=== PATIENT | male | born 1960 | race Caucasian/White ===

== ENCOUNTER 2019-06-24 11:26 | Inpatient (IN) | payer OTHER ==
[~2019-06-24] VITALS: Ht 170.2 cm; Wt 57.8 kg
[~2019-06-24 11:26] MED LIST: LIB5 PO; METO25XL PO; diuretic PO
[2019-06-24] MEDS ORDERED: DEXTROSE 50%-WATER 25 GM/50 ML SYRINGE IVP ONE ×2 (11:35→13:15)
[2019-06-24] MEDS ORDERED: DEXTROSE 5%-0.9% SODIUM CHL 1,000 ML IV ONE (11:35)
[2019-06-24] MEDS ORDERED: SODIUM CHLORIDE 0.9% 2,100 ML IV ONE (11:37)
[2019-06-24] MEDS ORDERED: SODIUM CHLORIDE 154 MEQ in DEXTROSE 10%-WATER 1,000 ML IV ONE (11:45)
[2019-06-24] MEDS ORDERED: SPIR50 PO (11:49)
[2019-06-24] MEDS ORDERED: LACT30L PO (11:49)
[2019-06-24] MEDS ORDERED: METO1TAB14 PO (11:49)
[2019-06-24] MEDS ORDERED: FURO40 PO (11:49)
[2019-06-24] MEDS ORDERED: KDUR20 PO (11:49)
[2019-06-24] MEDS ORDERED: EPINEPHrine 1:10,000 [1 MG/10 ML] SYRINGE ONE (12:07)
[2019-06-24] MEDS ORDERED: ATROPINE SULFATE 0.1 MG/ML 10 ML SYRINGE IVP ONE ×2 (12:07→16:26)
[2019-06-24] MEDS ORDERED: EPINEPHrine 1:10,000 [1 MG/10 ML] SYRINGE IVP ONE ×2 (12:10→12:35)
[2019-06-24] MEDS: NOREPINEPHRINE 4 MG/D5%-WATER 250 ML IV PRN ×4 (12:17→22:49)
[2019-06-24 12:19] LABS: MEAN CORPUSCULAR HEMOGLOBIN 28.1 pg (26.0-34.0); MEAN CORPUSCULAR HGB CONC 30.3 G/dL (31.0-37.0); MEAN CORPUSCULAR VOLUME 93 fL (80-100); PLATELET COUNT (AUTO) 185 K/uL (150-450); RED BLOOD CELL COUNT(AUTO) 2.37 MIL/uL (4.50-5.90); RED CELL DISTRIBUTION WIDTH 19.5 % (11.5-14.5)
[2019-06-24] MEDS ORDERED: RAPID SEQUENCE KIT [RSI] 1 EACH KIT ONE (12:21)
[2019-06-24] MEDS ORDERED: SUCCINYLCHOLINE CHLORIDE 20 MG/ML 10 ML VIAL ONE (12:22)
[2019-06-24] MEDS ORDERED: LEVOFLOXACIN 750 MG/D5% WATER 150 ML IV ONE (12:30)
[2019-06-24] MEDS ORDERED: SODIUM CHLORIDE 0.9% 1,000 ML IV ONE ×3 (12:30→15:00)
[2019-06-24] MEDS ORDERED: PIPERACILLIN SODIUM/TAZOBACTAM 4.5 GM in DEXTROSE 5%-WATER 100 ML IV ONE (12:30)
[2019-06-24 12:32] LABS: HEMOGLOBIN 6.7 g/dL (13.5-17.5)
[2019-06-24 12:38] LABS: APPEARANCE,URINE CLOUDY (CLEAR); GLUCOSE, URINE (UA) NEGATIVE (NEGATIVE); KETONES,URINE TRACE mg/dL (NEGATIVE); LEUKOCYTE ESTERASE ,URINE NEGATIVE (NEGATIVE); NITRATE,URINE NEGATIVE (NEGATIVE); OCCULT BLOOD,URINE NEGATIVE (NEGATIVE); PROTEIN,URINE TRACE (NEGATIVE); UROBILINOGEN,URINE 0.2 mg/dL (<=1.0)
[2019-06-24 12:38] LABS: INR 2.3 (0.9-1.1); PROTHROMBIN TIME 23.6 SEC (9.4-11.6)
[2019-06-24] MEDS ORDERED: ETOMIDATE 2 MG/ML 10 ML VIAL IVP ONE (12:40)
[2019-06-24] MEDS ORDERED: ROCURONIUM BROMIDE 10 MG/ML 5 ML VIAL IVP ONE (12:40)
[2019-06-24 12:47] LABS: BILIRUBIN,URINE PRELIM. POSITIVE (NEGATIVE)
[2019-06-24] MEDS ORDERED: PROPOFOL 1000 MG/ISO-OSM 100 ML IV ONE (12:49)
[2019-06-24 12:54] LABS: BAND NEUTROPHILS % (MANUAL) 10 % (0-5); LYMPHOCYTES % (MANUAL) 3 % (22-44); MONOCYTES % (MANUAL) 1 % (2-9); SEGMENTED NEUTROPHILS % 86 % (40-70)
[2019-06-24] MEDS ORDERED: VANCOMYCIN HCL 1 GM/D5% WATER 200 ML IV ONE (13:00)
[2019-06-24] MEDS ORDERED: SODIUM BICARBONATE [ADULT] 8.4% 50 MEQ/50 ML SYRINGE IVP ONE ×4 (13:00→17:33)
[2019-06-24] MEDS ORDERED: CALCIUM CHLORIDE 100 MG/ML 10 ML SYRINGE IVP ONE ×2 (13:00→17:33)
[2019-06-24 13:01] LABS: AMORPHOUS SEDIMENT,UR Moderate /LPF (None Seen); BACTERIA,URINE None Seen /HPF (None Seen); RBC,URINE None Seen /HPF (0-2); SQUAMOUS EPITHELIAL CELL,UR Few /LPF (None Seen); WBC,URINE None Seen /HPF (0-5)
[2019-06-24 13:01] LABS: ALANINE AMINOTRANSFERASE 29 U/L (12-78); ALBUMIN 1.3 g/dL (3.4-5.0); ALKALINE PHOSPHATASE 126 U/L (46-116); ANION GAP 16 mmol/L (8-16); ASPARTATE AMINOTRANSFERASE 68 U/L (15-37); BILIRUBIN,TOTAL 2.1 mg/dL (0.1-1.0); CALCIUM, TOTAL 9.4 mg/dL (8.8-10.5); CARBON DIOXIDE 10 mmol/L (22-29); CHLORIDE 92 mmol/L (98-107); CREATINE KINASE, TOTAL ONLY 67 U/L (39-308); CREATININE 2.58 mg/dL (0.60-1.30); GLOMERULAR FILTR. RATE CALC 26 mL/min (>60); GLUCOSE,RANDOM 308 mg/dL (70-110); PHOSPHORUS 7.6 mg/dL (2.5-4.9); TOTAL PROTEIN, SERUM 4.6 g/dL (6.4-8.2); UREA NITROGEN, BLOOD 68 mg/dL (7-18)
[2019-06-24 13:06] LABS: B-TYPE NATRIURETIC PEPTIDE 223 pg/mL (0-100)
[2019-06-24 13:11] LABS: POTASSIUM 7.7 mmol/L (3.5-5.1); SODIUM SERUM 118 mmol/L (136-145)
[2019-06-24 13:12] LABS: ABG A-A DIFF O2 302.9 mmHg (10-20.0); ABG BASE EXCESS -21.6 mmol/L (-2.0-3.0); ABG CARBOXYHEMOGLOBIN 0.7 % (0.0-1.5); ABG METHEMOGLOBIN 0.3 % (0.0-1.5); ABG OXYGEN CONTENT 12.3 mL/dL (15.0-23.0); ABG PCO2 41 mmHg (35-45); ABG PH 6.997 (7.35-7.450); SOURCE, BLOOD GAS ARTERIAL; TEMPERATURE, FAHRENHEIT, BG 86.3 FAHREN (96.0-98.6)
[2019-06-24 13:13] LABS: ABG HCO3 8.9 mmol/L (22.0-26.0); O2 DEVICE,BLOOD GAS VENTILATOR (ROOM AIR); PEEP,BG 5 cm H2O; SITE, BLOOD GAS LFT RADIAL; VT, ABG 400 ml
[2019-06-24] MEDS ORDERED: INSULIN REGULAR, HUMAN 100 UNITS/ML IVP ONE (13:15)
[2019-06-24] MEDS ORDERED: PROPOFOL 1000 MG/ISO-OSM 100 ML IV PRN (13:15)
[2019-06-24 13:20] LABS: LACTIC ACID 11.9 mmol/L (0.4-2.0)
[2019-06-24] MEDS ORDERED: ALBUTEROL SULFATE 2.5 MG/0.5 ML NEB SOLUTION NEB ONE (13:30)
[2019-06-24 13:41] LABS: GLUCOSE,POINT OF CARE 236 MG/DL (70-110)
[2019-06-24 14:01] LABS: GLUCOSE,POINT OF CARE 223 MG/DL (70-110)
[2019-06-24] MEDS ORDERED: PHENYLEPHRINE 200 MG/D5%-WATER 250 ML IV PRN (14:15)
[2019-06-24] MEDS ORDERED: ACETAMINOPHEN 325 MG TABLET PO PRN ×2 (14:15→15:00)
[2019-06-24] MEDS ORDERED: ONDANSETRON HCL 4 MG/2 ML VIAL IVP PRN ×2 (14:15→15:00)
[2019-06-24 14:31] LABS: GLUCOSE,POINT OF CARE 345 MG/DL (70-110)
[2019-06-24] MEDS ORDERED: SODIUM CHLORIDE 0.9% 500 ML IV ONE (14:42)
[2019-06-24] MEDS ORDERED: SODIUM CITRATE 4% CATH FLUSH 5 ML SYRINGE IVP PRN ×2 (14:45)
[2019-06-24] MEDS ORDERED: HYDROCODONE/ACETAMINOPHEN 5-325 MG TABLET PO PRN (15:00)
[2019-06-24] MEDS ORDERED: ZOLPIDEM TARTRATE 5 MG TABLET PO PRN (15:00)
[2019-06-24] MEDS ORDERED: BISACODYL 10 MG RECTAL RECTAL SUPPOSITORY PR PRN (15:00)
[2019-06-24] MEDS ORDERED: MAGNESIUM HYDROXIDE SUSPENSION 30 ML UDCUP PO PRN (15:00)
[2019-06-24] MEDS ORDERED: VANCOMYCIN HCL 1 GM/D5% WATER 200 ML IV PRN (15:30)
[2019-06-24 15:45] LABS: CALCIUM, TOTAL 9.3 mg/dL (8.8-10.5); CREATININE 2.41 mg/dL (0.60-1.30); POTASSIUM 5.8 mmol/L (3.5-5.1)
[2019-06-24] MEDS ORDERED: CALCIUM GLUCONATE 1,000 MG in DEXTROSE 5%-WATER 50 ML IV ONE (15:45)
[2019-06-24] MEDS: HEPARIN SODIUM,PORCINE 5,000 UNITS/ML VIAL SQ SCH ×2 (16:00→23:22)
[2019-06-24] MEDS ORDERED: ETOMIDATE 2 MG/ML 10 ML VIAL IV ONE (16:26)
[2019-06-24] MEDS: ALBUMIN HUMAN 25%-50GM/200ML 200 ML IV SCH ×2 (16:26→21:34)
[2019-06-24] MEDS ORDERED: SODIUM CHLORIDE 0.9% 250 ML IV ONE (17:29)
[2019-06-24 17:45] VITALS: BP 67/18
[2019-06-24] MEDS: VASOPRESSIN 40 UNITS in DEXTROSE 5%-WATER 98 ML IV PRN (17:55)
[2019-06-24 18:00] VITALS: BP_SYST 101; BP_SYST 84; BP_DIAS 24; BP_DIAS 31
[2019-06-24 18:15] VITALS: BP 120/30
[2019-06-24 18:31] LABS: CREATININE 2.26 mg/dL (0.60-1.30); POTASSIUM 5.5 mmol/L (3.5-5.1)
[2019-06-24 18:45] VITALS: BP 142/41
[2019-06-24 19:15] VITALS: BP 141/40
[2019-06-24 20:00] VITALS: BP 133/37
[2019-06-24] MEDS: DOCUSATE SODIUM 100 MG CAPSULE PO SCH (20:26)
[2019-06-24] MEDS ORDERED: HEPARIN SODIUM,PORCINE 1,000 UNITS/ML VIAL ONE (20:35)
[2019-06-24 21:06] LABS: ABG A-A DIFF O2 300.7 mmHg (10-20.0); ABG BASE EXCESS -12.2 mmol/L (-2.0-3.0); ABG CARBOXYHEMOGLOBIN 0.6 % (0.0-1.5); ABG HCO3 15.1 mmol/L (22.0-26.0); ABG METHEMOGLOBIN 0.3 % (0.0-1.5); ABG OXYGEN CONTENT 12.1 mL/dL (15.0-23.0); ABG OXYGEN SATURATION 97.2 % (95.0-98.0); ABG OXYHEMOGLOBIN 96.3 % (94.0-100.0); ABG PCO2 45 mmHg (35-45); ABG TOTAL HEMOGLOBIN 8.8 G/dL (12.0-18.0); PO2, ARTERIAL BG 84.4 mmHg (84.0-92.0); SOURCE, BLOOD GAS ARTERIAL
[2019-06-24 21:07] LABS: ABG PH 7.174 (7.35-7.450); SITE, BLOOD GAS ARTERIAL LINE
[2019-06-24 21:08] LABS: O2 DEVICE,BLOOD GAS VENTILATOR (ROOM AIR); PEEP,BG 5 cm H2O; VT, ABG 500 ml
[2019-06-24 21:14] LABS: HEMATOCRIT 24.4 % (41-53); HEMOGLOBIN 7.7 g/dL (13.5-17.5); MEAN CORPUSCULAR HEMOGLOBIN 28.4 pg (26.0-34.0); MEAN CORPUSCULAR HGB CONC 31.7 G/dL (31.0-37.0); MEAN CORPUSCULAR VOLUME 90 fL (80-100); RED BLOOD CELL COUNT(AUTO) 2.72 MIL/uL (4.50-5.90); RED CELL DISTRIBUTION WIDTH 18.3 % (11.5-14.5)
[2019-06-24] MEDS: OCTREOTIDE ACETATE 500 MCG in DEXTROSE 5%-WATER 97.5 ML IV SCH (21:32)
[2019-06-24] MEDS: PIPERACILLIN SODIUM/TAZOBACTAM 4.5 GM in DEXTROSE 5%-WATER 100 ML IV SCH (21:34)
[2019-06-24 21:48] LABS: PLATELET COUNT (AUTO) 71 K/uL (150-450)
[2019-06-24 21:49] LABS: BAND NEUTROPHILS % (MANUAL) 44 % (0-5); LYMPHOCYTES % (MANUAL) 3 % (22-44); MONOCYTES % (MANUAL) 2 % (2-9); SEGMENTED NEUTROPHILS % 51 % (40-70)
[2019-06-24] MEDS ORDERED: HEPARIN SODIUM,PORCINE 1,000 UNITS/ML VIAL IVP PRN ×2 (22:45)
[2019-06-24] MEDS: PROPOFOL 1000 MG/ISO-OSM 100 ML IV PRN (23:43)
[2019-06-25] VITALS (33 sets, daily range): BP systolic 27–129; BP diastolic 22–35
[2019-06-25 00:06] LABS: CALCIUM, TOTAL 8.7 mg/dL (8.8-10.5); CREATININE 2.05 mg/dL (0.60-1.30)
[2019-06-25] MEDS: PHENYLEPHRINE 200 MG/D5%-WATER 250 ML IV PRN ×3 (00:28→17:09)
[2019-06-25 01:31] LABS: GLUCOSE,POINT OF CARE 134 MG/DL (70-110)
[2019-06-25] MEDS ORDERED: 0.9% SODIUM CHLORIDE 15 ML NEB SOLUTION NEB ONE ×2 (01:33→14:22)
[2019-06-25] MEDS: NOREPINEPHRINE 4 MG/D5%-WATER 250 ML IV PRN ×5 (02:17→16:05)
[2019-06-25] MEDS ORDERED: INFLUENZA VIRUS VACCINE QVS 2019-20 (3YR+)/PF 60 MCG/0.5 ML SYRINGE IM ONE (03:15)
[2019-06-25] MEDS ORDERED: PNEUMOCOCCAL VACCINE POLYVALENT 0.5 ML VIAL [PPSV23] IM ONE (03:15)
[2019-06-25] MEDS: ALBUMIN HUMAN 25%-50GM/200ML 200 ML IV SCH ×4 (03:18→21:31)
[2019-06-25] MEDS: POTASSIUM CHLORIDE 15 MEQ in NXSTAGE RFP-402 K0/CA3 5,000 ML IRRIG PRN ×5 (04:37→23:40)
[2019-06-25] MEDS: OCTREOTIDE ACETATE 500 MCG in DEXTROSE 5%-WATER 97.5 ML IV SCH ×2 (04:45→17:08)
[2019-06-25] MEDS: PIPERACILLIN SODIUM/TAZOBACTAM 4.5 GM in DEXTROSE 5%-WATER 100 ML IV SCH ×3 (05:09→21:36)
[2019-06-25 05:11] LABS: APPEARANCE,URINE CLOUDY (CLEAR); BILIRUBIN,URINE NEGATIVE (NEGATIVE); GLUCOSE, URINE (UA) 250 mg/dL (NEGATIVE); KETONES,URINE NEGATIVE (NEGATIVE); LEUKOCYTE ESTERASE ,URINE NEGATIVE (NEGATIVE); NITRATE,URINE NEGATIVE (NEGATIVE); OCCULT BLOOD,URINE LARGE (NEGATIVE); PROTEIN,URINE SEE CONFIRM (NEGATIVE); UROBILINOGEN,URINE 0.2 mg/dL (<=1.0)
[2019-06-25 05:15] LABS: MEAN CORPUSCULAR HEMOGLOBIN 28.4 pg (26.0-34.0); MEAN CORPUSCULAR HGB CONC 32.5 G/dL (31.0-37.0); MEAN CORPUSCULAR VOLUME 87 fL (80-100); PLATELET COUNT (AUTO) 56 K/uL (150-450); RED BLOOD CELL COUNT(AUTO) 2.21 MIL/uL (4.50-5.90); RED CELL DISTRIBUTION WIDTH 18.6 % (11.5-14.5)
[2019-06-25 05:19] LABS: BACTERIA,URINE Moderate /HPF (None Seen); RBC,URINE >100 /HPF (0-2); SQUAMOUS EPITHELIAL CELL,UR Rare /LPF (None Seen); SULFOSALICYLIC ACID,URINE 1+ (Negative); WBC,URINE 26-50 /HPF (0-5)
[2019-06-25 05:20] LABS: HYALINE CASTS, URINE 0-2 /LPF (None Seen)
[2019-06-25] MEDS ORDERED: DEXTROSE 50%-WATER 25 GM/50 ML SYRINGE IVP ONE (05:23)
[2019-06-25] MEDS: VASOPRESSIN 40 UNITS in DEXTROSE 5%-WATER 98 ML IV PRN ×2 (05:31→22:14)
[2019-06-25] MEDS: DEXTROSE 50%-WATER 25 GM/50 ML SYRINGE IVP PRN ×6 (05:33→20:08)
[2019-06-25 05:34] LABS: ALBUMIN 3.6 g/dL (3.4-5.0); BILIRUBIN,TOTAL 3.2 mg/dL (0.1-1.0); CALCIUM, TOTAL 9.1 mg/dL (8.8-10.5); CREATININE 1.94 mg/dL (0.60-1.30); MAGNESIUM 1.5 mg/dL (1.80-2.40); PHOSPHORUS 3.9 mg/dL (2.5-4.9); POTASSIUM 5.4 mmol/L (3.5-5.1); THYROID STIMULATING HORMONE 0.66 uIU/mL (0.36-3.74); TOTAL PROTEIN, SERUM 5.9 g/dL (6.4-8.2); VANCOMYCIN,RANDOM 14.5 mcg/mL (25.0-50.0)
[2019-06-25 05:43] LABS: HEMATOCRIT 19.4 % (41-53); HEMOGLOBIN 6.3 g/dL (13.5-17.5)
[2019-06-25] MEDS ORDERED: SODIUM CHLORIDE 0.9% 250 ML IV ONE ×3 (05:44→22:32)
[2019-06-25 05:48] LABS: BAND NEUTROPHILS % (MANUAL) 38 % (0-5); EOSINOPHILS % (MANUAL) 1 % (1-6); LYMPHOCYTES % (MANUAL) 4 % (22-44); MONOCYTES % (MANUAL) 2 % (2-9); MYELOCYTES % 1 % (0-0); SEGMENTED NEUTROPHILS % 54 % (40-70)
[2019-06-25 07:11] LABS: GLUCOSE,POINT OF CARE 28 MG/DL (70-110)
[2019-06-25 07:11] LABS: GLUCOSE,POINT OF CARE 139 MG/DL (70-110)
[2019-06-25] MEDS: DOCUSATE SODIUM 100 MG CAPSULE PO SCH ×2 (08:01→20:14)
[2019-06-25] MEDS ORDERED: PANTOPRAZOLE SODIUM 40 MG DR TABLET PO SCH (09:00)
[2019-06-25] MEDS ORDERED: VANCOMYCIN HCL 1 GM/D5% WATER 200 ML IV ONE (09:00)
[2019-06-25] MEDS ORDERED: SODIUM CHLORIDE 154 MEQ in DEXTROSE 10%-WATER 1,000 ML IV SCH (09:45)
[2019-06-25 09:52] LABS: CALCIUM, TOTAL 8.6 mg/dL (8.8-10.5); CREATININE 1.85 mg/dL (0.60-1.30); POTASSIUM 5.4 mmol/L (3.5-5.1)
[2019-06-25] MEDS ORDERED: DEXTROSE 50%-WATER 25 GM/50 ML SYRINGE IVP PRN (11:00)
[2019-06-25] MEDS ORDERED: INSULIN LISPRO 100 UNITS/ML SQ PRN (11:00)
[2019-06-25 11:39] LABS: ABG A-A DIFF O2 618.3 mmHg (10-20.0); ABG BASE EXCESS -6.2 mmol/L (-2.0-3.0); ABG HCO3 19.5 mmol/L (22.0-26.0); ABG METHEMOGLOBIN 0.3 % (0.0-1.5); ABG OXYGEN CONTENT 10.3 mL/dL (15.0-23.0); ABG OXYGEN SATURATION 89.7 % (95.0-98.0); ABG OXYHEMOGLOBIN 88.5 % (94.0-100.0); ABG PCO2 44 mmHg (35-45); ABG PH 7.282 (7.35-7.450); ABG TOTAL HEMOGLOBIN 8.2 G/dL (12.0-18.0); PO2, ARTERIAL BG 53.4 mmHg (84.0-92.0); SOURCE, BLOOD GAS ARTERIAL; TEMPERATURE, FAHRENHEIT, BG 96.5 FAHREN (96.0-98.6)
[2019-06-25 11:40] LABS: O2 DEVICE,BLOOD GAS VENTILATOR (ROOM AIR); PEEP,BG 5 cm H2O; SITE, BLOOD GAS ARTERIAL LINE; VT, ABG 400 ml
[2019-06-25 11:56] LABS: GLUCOSE,POINT OF CARE 39 MG/DL (70-110)
[2019-06-25 11:56] LABS: GLUCOSE,POINT OF CARE 124 MG/DL (70-110)
[2019-06-25 13:16] LABS: GLUCOSE,POINT OF CARE 148 MG/DL (70-110)
[2019-06-25 13:29] LABS: HEMATOCRIT 23.6 % (41-53); HEMOGLOBIN 7.8 g/dL (13.5-17.5); MEAN CORPUSCULAR HGB CONC 33.2 G/dL (31.0-37.0); MEAN CORPUSCULAR VOLUME 88 fL (80-100); PLATELET COUNT (AUTO) 40 K/uL (150-450); RED CELL DISTRIBUTION WIDTH 17.2 % (11.5-14.5)
[2019-06-25 13:39] LABS: CALCIUM, TOTAL 8.1 mg/dL (8.8-10.5); CREATININE 1.79 mg/dL (0.60-1.30); POTASSIUM 5.1 mmol/L (3.5-5.1)
[2019-06-25 14:13] LABS: BAND NEUTROPHILS % (MANUAL) 37 % (0-5); EOSINOPHILS % (MANUAL) 1 % (1-6); LYMPHOCYTES % (MANUAL) 3 % (22-44); METAMYELOCYTES % 2 % (0-0); MONOCYTES % (MANUAL) 4 % (2-9); MYELOCYTES % 1 % (0-0); SEGMENTED NEUTROPHILS % 52 % (40-70)
[2019-06-25 15:43] LABS: ABG A-A DIFF O2 623.7 mmHg (10-20.0); ABG BASE EXCESS -5.1 mmol/L (-2.0-3.0); ABG CARBOXYHEMOGLOBIN 0.6 % (0.0-1.5); ABG HCO3 20.3 mmol/L (22.0-26.0); ABG METHEMOGLOBIN 0.3 % (0.0-1.5); ABG OXYGEN CONTENT 10.1 mL/dL (15.0-23.0); ABG OXYGEN SATURATION 84.2 % (95.0-98.0); ABG OXYHEMOGLOBIN 83.4 % (94.0-100.0); ABG PCO2 42 mmHg (35-45); ABG PH 7.321 (7.35-7.450); ABG TOTAL HEMOGLOBIN 8.6 G/dL (12.0-18.0); PO2, ARTERIAL BG 48.7 mmHg (84.0-92.0); SOURCE, BLOOD GAS ARTERIAL; TEMPERATURE, FAHRENHEIT, BG 97.9 FAHREN (96.0-98.6)
[2019-06-25 15:44] LABS: O2 DEVICE,BLOOD GAS VENTILATOR (ROOM AIR); PEEP,BG 10 cm H2O; SITE, BLOOD GAS ARTERIAL LINE; VT, ABG 400 ml
[2019-06-25] MEDS ORDERED: SODIUM CHLORIDE 0.9% 500 ML IV ONE ×2 (15:54→22:32)
[2019-06-25] MEDS: SODIUM CHLORIDE IV SCH (17:09)
[2019-06-25] MEDS: WATER IV SCH (17:09)
[2019-06-25] MEDS: DEXTROSE 20% IV SCH (17:09)
[2019-06-25 17:24] LABS: CALCIUM, TOTAL 8.2 mg/dL (8.8-10.5); CREATININE 1.89 mg/dL (0.60-1.30); POTASSIUM 5.2 mmol/L (3.5-5.1)
[2019-06-25 17:36] LABS: GLUCOSE,POINT OF CARE 54 MG/DL (70-110)
[2019-06-25 17:37] LABS: GLUCOSE,POINT OF CARE 90 MG/DL (70-110)
[2019-06-25] MEDS: PHENYLEPHRINE HCL 400 MG in DEXTROSE 5%-WATER 210 ML IV PRN (19:21)
[2019-06-25] MEDS: NOREPINEPHRINE BITARTRATE 16 MG in DEXTROSE 5%-WATER 234 ML IV PRN (19:22)
[2019-06-25 21:36] LABS: CALCIUM, TOTAL 8.5 mg/dL (8.8-10.5); CREATININE 1.91 mg/dL (0.60-1.30); POTASSIUM 4.8 mmol/L (3.5-5.1)
[2019-06-25 21:53] LABS: LACTIC ACID 4.5 mmol/L (0.4-2.0)
[2019-06-25 23:57] LABS: GLUCOSE,POINT OF CARE 91 MG/DL (70-110)
[2019-06-25 23:57] LABS: GLUCOSE,POINT OF CARE 64 MG/DL (70-110)
[2019-06-25 23:57] LABS: GLUCOSE,POINT OF CARE 77 MG/DL (70-110)
[2019-06-25 23:57] LABS: GLUCOSE,POINT OF CARE 75 MG/DL (70-110)
[2019-06-26] VITALS (8 sets, daily range): BP systolic 91–102; BP diastolic 31–38
[2019-06-26] MEDS: OCTREOTIDE ACETATE 500 MCG in DEXTROSE 5%-WATER 97.5 ML IV SCH ×3 (01:07→21:23)
[2019-06-26 01:30] LABS: CALCIUM, TOTAL 8.1 mg/dL (8.8-10.5); CREATININE 1.95 mg/dL (0.60-1.30); POTASSIUM 5.3 mmol/L (3.5-5.1)
[2019-06-26 01:41] LABS: LACTIC ACID 4.2 mmol/L (0.4-2.0)
[2019-06-26] MEDS: ALBUMIN HUMAN 25%-50GM/200ML 200 ML IV SCH ×4 (03:12→22:14)
[2019-06-26] MEDS: NOREPINEPHRINE BITARTRATE 16 MG in DEXTROSE 5%-WATER 234 ML IV PRN ×2 (04:51→18:15)
[2019-06-26] MEDS: PIPERACILLIN SODIUM/TAZOBACTAM 4.5 GM in DEXTROSE 5%-WATER 100 ML IV SCH ×3 (05:32→22:19)
[2019-06-26 05:36] LABS: HEMATOCRIT 21.7 % (41-53); HEMOGLOBIN 7.2 g/dL (13.5-17.5); MEAN CORPUSCULAR HEMOGLOBIN 29.4 pg (26.0-34.0); MEAN CORPUSCULAR HGB CONC 33.3 G/dL (31.0-37.0); MEAN CORPUSCULAR VOLUME 88 fL (80-100); PLATELET COUNT (AUTO) 29 K/uL (150-450); RED BLOOD CELL COUNT(AUTO) 2.47 MIL/uL (4.50-5.90); RED CELL DISTRIBUTION WIDTH 17.6 % (11.5-14.5)
[2019-06-26 05:48] LABS: CALCIUM, TOTAL 8.8 mg/dL (8.8-10.5); CREATININE 1.98 mg/dL (0.60-1.30); POTASSIUM 5.2 mmol/L (3.5-5.1)
[2019-06-26 05:57] LABS: GLUCOSE,POINT OF CARE 78 MG/DL (70-110)
[2019-06-26 05:57] LABS: GLUCOSE,POINT OF CARE 71 MG/DL (70-110)
[2019-06-26 05:57] LABS: GLUCOSE,POINT OF CARE 77 MG/DL (70-110)
[2019-06-26 06:57] LABS: BAND NEUTROPHILS % (MANUAL) 41 % (0-5); LYMPHOCYTES % (MANUAL) 2 % (22-44); METAMYELOCYTES % 2 % (0-0); MONOCYTES % (MANUAL) 2 % (2-9); MYELOCYTES % 3 % (0-0); REACTIVE LYMPHOCYTES 4 % (0-0); SEGMENTED NEUTROPHILS % 46 % (40-70)
[2019-06-26 06:58] LABS: WBC MORPHOLOGY TOXIC GRANULATION
[2019-06-26 07:00] LABS: GLUCOSE,POINT OF CARE 49 MG/DL (70-110)
[2019-06-26 07:01] LABS: GLUCOSE,POINT OF CARE 54 MG/DL (70-110)
[2019-06-26 07:01] LABS: GLUCOSE,POINT OF CARE 88 MG/DL (70-110)
[2019-06-26 07:01] LABS: GLUCOSE,POINT OF CARE 125 MG/DL (70-110)
[2019-06-26] MEDS: PANTOPRAZOLE SODIUM 40 MG/VIAL IVP SCH (08:17)
[2019-06-26] MEDS: DOCUSATE SODIUM 100 MG CAPSULE PO SCH ×2 (08:18→20:06)
[2019-06-26 09:14] LABS: ABG A-A DIFF O2 627.5 mmHg (10-20.0); ABG BASE EXCESS -8.6 mmol/L (-2.0-3.0); ABG CARBOXYHEMOGLOBIN 0.9 % (0.0-1.5); ABG HCO3 17.7 mmol/L (22.0-26.0); ABG METHEMOGLOBIN 0.3 % (0.0-1.5); ABG OXYGEN CONTENT 8.8 mL/dL (15.0-23.0); ABG PCO2 41 mmHg (35-45); ABG PH 7.272 (7.35-7.450); PO2, ARTERIAL BG 45.5 mmHg (84.0-92.0); SOURCE, BLOOD GAS ARTERIAL; TEMPERATURE, FAHRENHEIT, BG 98.2 FAHREN (96.0-98.6)
[2019-06-26] MEDS ORDERED: VANCOMYCIN HCL 500 MG in DEXTROSE 5%-WATER 100 ML IV ONE (09:15)
[2019-06-26 09:16] LABS: ABG OXYGEN SATURATION 78.9 % (95.0-98.0); O2 DEVICE,BLOOD GAS VENTILATOR (ROOM AIR); PEEP,BG 12 cm H2O; SITE, BLOOD GAS ARTERIAL LINE; VT, ABG 400 ml
[2019-06-26] MEDS: POTASSIUM CHLORIDE 15 MEQ in NXSTAGE RFP-402 K0/CA3 5,000 ML IRRIG PRN ×4 (09:19→20:53)
[2019-06-26] MEDS ORDERED: NOREPINEPHRINE BITARTRATE 16 MG in DEXTROSE 5%-WATER 234 ML IV PRN (09:46)
[2019-06-26 12:49] LABS: CALCIUM, TOTAL 9.3 mg/dL (8.8-10.5)
[2019-06-26 12:54] LABS: CREATININE 2.06 mg/dL (0.60-1.30)
[2019-06-26] MEDS: VASOPRESSIN 40 UNITS in DEXTROSE 5%-WATER 98 ML IV PRN (14:13)
[2019-06-26] MEDS: PHENYLEPHRINE HCL 400 MG in DEXTROSE 5%-WATER 210 ML IV PRN (14:14)
[2019-06-26] MEDS: PROPOFOL 1000 MG/ISO-OSM 100 ML IV PRN (14:55)
[2019-06-26 16:42] LABS: GLUCOSE,POINT OF CARE 91 MG/DL (70-110)
[2019-06-26 16:42] LABS: GLUCOSE,POINT OF CARE 101 MG/DL (70-110)
[2019-06-26] MEDS: SODIUM CHLORIDE IV SCH (17:40)
[2019-06-26] MEDS: DEXTROSE 20% IV SCH (17:40)
[2019-06-26] MEDS: WATER IV SCH (17:40)
[2019-06-26 17:42] LABS: CALCIUM, TOTAL 8.8 mg/dL (8.8-10.5); CREATININE 1.89 mg/dL (0.60-1.30); POTASSIUM 4.8 mmol/L (3.5-5.1)
[2019-06-26] MEDS: MORPHINE SULFATE 2 MG/ML SYRINGE IVP PRN (20:01)
[2019-06-26 20:37] LABS: CALCIUM, TOTAL 9.8 mg/dL (8.8-10.5); CREATININE 2.02 mg/dL (0.60-1.30); POTASSIUM 4.7 mmol/L (3.5-5.1)
[2019-06-26 23:46] LABS: GLUCOSE,POINT OF CARE 104 MG/DL (70-110)
[2019-06-26 23:46] LABS: GLUCOSE,POINT OF CARE 100 MG/DL (70-110)
[2019-06-26] MEDS ORDERED: SODIUM CHLORIDE 0.9% 500 ML IV ONE (23:51)
[2019-06-26] MEDS ORDERED: SODIUM CHLORIDE 0.9% 250 ML IV ONE (23:51)
[2019-06-27] VITALS (12 sets, daily range): BP systolic 80–107; BP diastolic 30–44
[2019-06-27] MEDS: MORPHINE SULFATE 2 MG/ML SYRINGE IVP PRN ×3 (00:06→22:26)
[2019-06-27 00:11] LABS: CALCIUM, TOTAL 9.8 mg/dL (8.8-10.5); CREATININE 2.02 mg/dL (0.60-1.30); POTASSIUM 4.5 mmol/L (3.5-5.1)
[2019-06-27] MEDS: PROPOFOL 1000 MG/ISO-OSM 100 ML IV PRN ×2 (02:05→13:30)
[2019-06-27] MEDS: ALBUMIN HUMAN 25%-50GM/200ML 200 ML IV SCH ×4 (03:20→21:17)
[2019-06-27 05:06] LABS: HEMATOCRIT 21.1 % (41-53); MEAN CORPUSCULAR HEMOGLOBIN 28.8 pg (26.0-34.0); MEAN CORPUSCULAR HGB CONC 32.6 G/dL (31.0-37.0); MEAN CORPUSCULAR VOLUME 88 fL (80-100); PLATELET COUNT (AUTO) 27 K/uL (150-450); RED BLOOD CELL COUNT(AUTO) 2.39 MIL/uL (4.50-5.90); RED CELL DISTRIBUTION WIDTH 18.3 % (11.5-14.5)
[2019-06-27] MEDS: PIPERACILLIN SODIUM/TAZOBACTAM 4.5 GM in DEXTROSE 5%-WATER 100 ML IV SCH ×3 (05:11→21:31)
[2019-06-27] MEDS: NOREPINEPHRINE BITARTRATE 16 MG in DEXTROSE 5%-WATER 234 ML IV PRN ×2 (05:13→20:49)
[2019-06-27 05:14] LABS: HEMOGLOBIN 6.9 g/dL (13.5-17.5)
[2019-06-27 05:16] LABS: ALBUMIN 5.2 g/dL (3.4-5.0); BILIRUBIN,TOTAL 4.7 mg/dL (0.1-1.0); CALCIUM, TOTAL 9.9 mg/dL (8.8-10.5); POTASSIUM 4.4 mmol/L (3.5-5.1); TOTAL PROTEIN, SERUM 6.8 g/dL (6.4-8.2); VANCOMYCIN,RANDOM 18.8 mcg/mL (25.0-50.0)
[2019-06-27 05:24] LABS: INR 2.8 (0.9-1.1); PROTHROMBIN TIME 28.1 SEC (9.4-11.6)
[2019-06-27 05:36] LABS: GLUCOSE,POINT OF CARE 97 MG/DL (70-110)
[2019-06-27] MEDS ORDERED: SODIUM CHLORIDE 0.9% 250 ML IV ONE (06:24)
[2019-06-27] MEDS: POTASSIUM CHLORIDE 15 MEQ in NXSTAGE RFP-402 K0/CA3 5,000 ML IRRIG PRN ×3 (06:33→17:31)
[2019-06-27] MEDS: OCTREOTIDE ACETATE 500 MCG in DEXTROSE 5%-WATER 97.5 ML IV SCH ×2 (06:41→17:25)
[2019-06-27] MEDS: VASOPRESSIN 40 UNITS in DEXTROSE 5%-WATER 98 ML IV PRN ×2 (06:43→23:57)
[2019-06-27 07:16] LABS: BAND NEUTROPHILS % (MANUAL) 39 % (0-5); LYMPHOCYTES % (MANUAL) 2 % (22-44); METAMYELOCYTES % 2 % (0-0); MONOCYTES % (MANUAL) 3 % (2-9); MYELOCYTES % 2 % (0-0); REACTIVE LYMPHOCYTES 2 % (0-0); SEGMENTED NEUTROPHILS % 50 % (40-70)
[2019-06-27 07:18] LABS: WBC MORPHOLOGY TOXIC GRANULATION
[2019-06-27] MEDS: PANTOPRAZOLE SODIUM 40 MG/VIAL IVP SCH (09:39)
[2019-06-27] MEDS: DOCUSATE SODIUM 100 MG CAPSULE PO SCH ×2 (09:39→20:07)
[2019-06-27] MEDS ORDERED: VANCOMYCIN HCL 500 MG in DEXTROSE 5%-WATER 100 ML IV ONE (10:00)
[2019-06-27 12:57] LABS: GLUCOSE,POINT OF CARE 88 MG/DL (70-110)
[2019-06-27 13:01] LABS: ABG A-A DIFF O2 550.4 mmHg (10-20.0); ABG CARBOXYHEMOGLOBIN 0.5 % (0.0-1.5); ABG HCO3 16.5 mmol/L (22.0-26.0); ABG METHEMOGLOBIN 0.3 % (0.0-1.5); ABG OXYGEN CONTENT 12.2 mL/dL (15.0-23.0); ABG OXYGEN SATURATION 96.6 % (95.0-98.0); ABG OXYHEMOGLOBIN 95.8 % (94.0-100.0); ABG PCO2 61 mmHg (35-45); ABG TOTAL HEMOGLOBIN 8.9 G/dL (12.0-18.0); PO2, ARTERIAL BG 103.7 mmHg (84.0-92.0); SOURCE, BLOOD GAS ARTERIAL
[2019-06-27 13:06] LABS: ABG PH 7.118 (7.35-7.450); O2 DEVICE,BLOOD GAS VENTILATOR (ROOM AIR); PEEP,BG 15 cm H2O; SITE, BLOOD GAS A LINE; VT, ABG 400 ml
[2019-06-27 13:07] LABS: SPONTANEOUS VT, BG 378 ml
[2019-06-27 14:26] LABS: CALCIUM, TOTAL 8.8 mg/dL (8.8-10.5); CREATININE 1.79 mg/dL (0.60-1.30); POTASSIUM 3.7 mmol/L (3.5-5.1)
[2019-06-27 14:37] LABS: ABG A-A DIFF O2 596.5 mmHg (10-20.0); ABG BASE EXCESS -8.6 mmol/L (-2.0-3.0); ABG CARBOXYHEMOGLOBIN 0.6 % (0.0-1.5); ABG HCO3 17.7 mmol/L (22.0-26.0); ABG METHEMOGLOBIN 0.3 % (0.0-1.5); ABG OXYGEN CONTENT 11.9 mL/dL (15.0-23.0); ABG OXYGEN SATURATION 94.5 % (95.0-98.0); ABG OXYHEMOGLOBIN 93.6 % (94.0-100.0); ABG PCO2 48 mmHg (35-45); ABG PH 7.221 (7.35-7.450); PO2, ARTERIAL BG 71.6 mmHg (84.0-92.0); SOURCE, BLOOD GAS ARTERIAL; TEMPERATURE, FAHRENHEIT, BG 96.8 FAHREN (96.0-98.6)
[2019-06-27 14:38] LABS: O2 DEVICE,BLOOD GAS VENT (ROOM AIR); SITE, BLOOD GAS A LINE
[2019-06-27 14:39] LABS: PEEP,BG 12 cm H2O; VT, ABG 400 ml
[2019-06-27] MEDS: PHENYLEPHRINE HCL 400 MG in DEXTROSE 5%-WATER 210 ML IV PRN (14:56)
[2019-06-27] MEDS: DEXTROSE 20% IV SCH (17:29)
[2019-06-27] MEDS: WATER IV SCH (17:29)
[2019-06-27] MEDS: SODIUM CHLORIDE IV SCH (17:29)
[2019-06-27 19:26] LABS: CALCIUM, TOTAL 9.9 mg/dL (8.8-10.5); CREATININE 2.07 mg/dL (0.60-1.30); MAGNESIUM 1.8 mg/dL (1.80-2.40); PHOSPHORUS 2.9 mg/dL (2.5-4.9); POTASSIUM 3.9 mmol/L (3.5-5.1)
[2019-06-27 19:28] LABS: HEMATOCRIT 24.9 % (41-53); MEAN CORPUSCULAR HEMOGLOBIN 28.9 pg (26.0-34.0); MEAN CORPUSCULAR HGB CONC 32.1 G/dL (31.0-37.0); MEAN CORPUSCULAR VOLUME 90 fL (80-100); PLATELET COUNT (AUTO) 24 K/uL (150-450); RED BLOOD CELL COUNT(AUTO) 2.77 MIL/uL (4.50-5.90); RED CELL DISTRIBUTION WIDTH 17.8 % (11.5-14.5)
[2019-06-27 19:56] LABS: GLUCOSE,POINT OF CARE 88 MG/DL (70-110)
[2019-06-27 19:56] LABS: GLUCOSE,POINT OF CARE 95 MG/DL (70-110)
[2019-06-27 19:56] LABS: GLUCOSE,POINT OF CARE 90 MG/DL (70-110)
[2019-06-27 19:56] LABS: GLUCOSE,POINT OF CARE 99 MG/DL (70-110)
[2019-06-27 21:30] LABS: BAND NEUTROPHILS % (MANUAL) 20 % (0-5); EOSINOPHILS % (MANUAL) 2 % (1-6); LYMPHOCYTES % (MANUAL) 7 % (22-44); MONOCYTES % (MANUAL) 3 % (2-9); SEGMENTED NEUTROPHILS % 68 % (40-70)
[2019-06-27 21:31] LABS: PLATELET MORPHOLOGY COMMENT LARGE PLTS PRESENT
[2019-06-27 22:34] LABS: CALCIUM, TOTAL 10.4 mg/dL (8.8-10.5); CREATININE 1.98 mg/dL (0.60-1.30); POTASSIUM 3.7 mmol/L (3.5-5.1)
[2019-06-28] VITALS: BP 81/33
[2019-06-28] MEDS ORDERED: SODIUM CHLORIDE 0.9% 250 ML IV ONE (02:45)
[2019-06-28] MEDS: OCTREOTIDE ACETATE 500 MCG in DEXTROSE 5%-WATER 97.5 ML IV SCH ×2 (02:47→13:02)
[2019-06-28] MEDS: ALBUMIN HUMAN 25%-50GM/200ML 200 ML IV SCH ×2 (03:07→09:44)
[2019-06-28] MEDS ORDERED: SODIUM CHLORIDE 0.9% 500 ML IV ONE (03:13)
[2019-06-28] MEDS: POTASSIUM CHLORIDE 15 MEQ in NXSTAGE RFP-402 K0/CA3 5,000 ML IRRIG PRN ×2 (03:30→13:03)
[2019-06-28 04:00] VITALS: BP 77/25
[2019-06-28 04:41] LABS: GLUCOSE,POINT OF CARE 89 MG/DL (70-110)
[2019-06-28] MEDS: PIPERACILLIN SODIUM/TAZOBACTAM 4.5 GM in DEXTROSE 5%-WATER 100 ML IV SCH (05:11)
[2019-06-28 05:34] LABS: HEMATOCRIT 23.4 % (41-53); HEMOGLOBIN 7.6 g/dL (13.5-17.5); MEAN CORPUSCULAR HEMOGLOBIN 29.2 pg (26.0-34.0); MEAN CORPUSCULAR HGB CONC 32.4 G/dL (31.0-37.0); MEAN CORPUSCULAR VOLUME 90 fL (80-100); RED BLOOD CELL COUNT(AUTO) 2.59 MIL/uL (4.50-5.90); RED CELL DISTRIBUTION WIDTH 18.1 % (11.5-14.5)
[2019-06-28 05:49] LABS: CALCIUM, TOTAL 10.2 mg/dL (8.8-10.5); CREATININE 2.05 mg/dL (0.60-1.30); POTASSIUM 3.8 mmol/L (3.5-5.1); VANCOMYCIN,RANDOM 11.9 mcg/mL (25.0-50.0)
[2019-06-28 05:59] LABS: INR 2.5 (0.9-1.1); PROTHROMBIN TIME 25.3 SEC (9.4-11.6)
[2019-06-28 06:58] LABS: PLATELET COUNT (AUTO) 18 K/uL (150-450)
[2019-06-28 07:01] LABS: GLUCOSE,POINT OF CARE 89 MG/DL (70-110)
[2019-06-28 07:45] LABS: SOURCE, BLOOD GAS ARTERIAL
[2019-06-28 08:00] VITALS: BP 97/32
[2019-06-28] MEDS: DOCUSATE SODIUM 100 MG CAPSULE PO SCH (08:33)
[2019-06-28] MEDS: PANTOPRAZOLE SODIUM 40 MG/VIAL IVP SCH (08:33)
[2019-06-28] MEDS: PHENYLEPHRINE HCL 400 MG in DEXTROSE 5%-WATER 210 ML IV PRN (08:37)
[2019-06-28] MEDS: NOREPINEPHRINE BITARTRATE 16 MG in DEXTROSE 5%-WATER 234 ML IV PRN (08:38)
[2019-06-28 08:40] LABS: BAND NEUTROPHILS % (MANUAL) 22 % (0-5); LYMPHOCYTES % (MANUAL) 3 % (22-44); MONOCYTES % (MANUAL) 4 % (2-9); SEGMENTED NEUTROPHILS % 71 % (40-70)
[2019-06-28] MEDS ORDERED: VANCOMYCIN HCL 750 MG in DEXTROSE 5%-WATER 250 ML IV ONE (10:00)
[2019-06-28 11:44] LABS: ABG A-A DIFF O2 604.1 mmHg (10-20.0); ABG BASE EXCESS -10.6 mmol/L (-2.0-3.0); ABG CARBOXYHEMOGLOBIN 0.4 % (0.0-1.5); ABG HCO3 16.2 mmol/L (22.0-26.0); ABG METHEMOGLOBIN 0.3 % (0.0-1.5); ABG OXYGEN SATURATION 89.8 % (95.0-98.0); ABG OXYHEMOGLOBIN 89.2 % (94.0-100.0); ABG PCO2 48 mmHg (35-45); ABG TOTAL HEMOGLOBIN 8.7 G/dL (12.0-18.0); PO2, ARTERIAL BG 63.6 mmHg (84.0-92.0); TEMPERATURE, FAHRENHEIT, BG 96.9 FAHREN (96.0-98.6)
[2019-06-28 11:45] LABS: ABG PH 7.186 (7.35-7.450); O2 DEVICE,BLOOD GAS VENTILATOR (ROOM AIR); PEEP,BG 12 cm H2O; SITE, BLOOD GAS ARTERIAL LINE; VT, ABG 400 ml
[2019-06-28 12:00] VITALS: BP 91/6
[2019-06-28 13:50] LABS: CALCIUM, TOTAL 9.6 mg/dL (8.8-10.5); CREATININE 1.95 mg/dL (0.60-1.30); POTASSIUM 3.5 mmol/L (3.5-5.1)
[2019-06-28] MEDS ORDERED: MORPHINE SULFATE 100 MG/NS/PF 100 ML IV PRN (14:15)
[2019-06-28 18:50] LABS: GLUCOSE,POINT OF CARE 97 MG/DL (70-110)
[2019-06-28 18:50] LABS: GLUCOSE,POINT OF CARE 104 MG/DL (70-110)
== END 2019-06-28 16:30 | disposition expired | DRG 720 ==
LOC: EMS 11:29 → ICU 16:18
PROVIDERS: ADMIT Internal Medicine; ATTEND Internal Medicine
PROC: 5A1945Z Respiratory Ventilation, 24-96 Consecutive Hours (ICD-10-PCS; principal; 2019-06-24)
PROC: 30233N1 Transfusion of Nonautologous Red Blood Cells into Peripheral Vein, Percutaneous Approach (ICD-10-PCS; 2019-06-24)
PROC: 04HY32Z Insertion of Monitoring Device into Lower Artery, Percutaneous Approach (ICD-10-PCS; 2019-06-24)
PROC: 06HM33Z Insertion of Infusion Device into Right Femoral Vein, Percutaneous Approach (ICD-10-PCS; 2019-06-24)
PROC: B54BZZA Ultrasonography of Right Lower Extremity Veins, Guidance (ICD-10-PCS; 2019-06-24)
PROC: 5A1D70Z Performance of Urinary Filtration, Intermittent, Less than 6 Hours Per Day (ICD-10-PCS; 2019-06-24)
PROC: 0BH17EZ Insertion of Endotracheal Airway into Trachea, Via Natural or Artificial Opening (ICD-10-PCS; 2019-06-24)
PROC: 5A1D70Z Performance of Urinary Filtration, Intermittent, Less than 6 Hours Per Day (ICD-10-PCS; 2019-06-25)
PROC: 30233K1 Transfusion of Nonautologous Frozen Plasma into Peripheral Vein, Percutaneous Approach (ICD-10-PCS; 2019-06-25)
PROC: 30233N1 Transfusion of Nonautologous Red Blood Cells into Peripheral Vein, Percutaneous Approach (ICD-10-PCS; 2019-06-25)
PROC: 5A1D70Z Performance of Urinary Filtration, Intermittent, Less than 6 Hours Per Day (ICD-10-PCS; 2019-06-26)
PROC: 5A1D70Z Performance of Urinary Filtration, Intermittent, Less than 6 Hours Per Day (ICD-10-PCS; 2019-06-27)
PROC: 30233K1 Transfusion of Nonautologous Frozen Plasma into Peripheral Vein, Percutaneous Approach (ICD-10-PCS; 2019-06-27)
PROC: 5A1D70Z Performance of Urinary Filtration, Intermittent, Less than 6 Hours Per Day (ICD-10-PCS; 2019-06-28)
DX: A41.9 Sepsis, unspecified organism (principal); J96.01 Acute respiratory failure with hypoxia; R65.21 Severe sepsis with septic shock; E43 Unspecified severe protein-calorie malnutrition; G93.41 Metabolic encephalopathy; J18.9 Pneumonia, unspecified organism; N17.9 Acute kidney failure, unspecified; E87.8 Other disorders of electrolyte and fluid balance, not elsewhere classified; K92.2 Gastrointestinal hemorrhage, unspecified; I10 Essential (primary) hypertension; K74.60 Unspecified cirrhosis of liver; D68.9 Coagulation defect, unspecified; E87.1 Hypo-osmolality and hyponatremia; E87.2 Acidosis; E87.5 Hyperkalemia; E16.2 Hypoglycemia, unspecified; D64.9 Anemia, unspecified; D69.59 Other secondary thrombocytopenia; E86.0 Dehydration; F17.210 Nicotine dependence, cigarettes, uncomplicated; I48.91 Unspecified atrial fibrillation; Z68.20 Body mass index [BMI] 20.0-20.9, adult
CPT/HCPCS: 31500; 36430; 36556; 36600; 74176; 82271; 82805; 82948; 83605; 83735; 84100; 84443; 86850; 86900; 86901; 86920; 86927; 87040; 87070; 87081; 87086; 87205; 87340; 93005; 93306; 94002; 94003; 99291; 99292; C9113; G0378; J0171; J0330; J0461; J0610; J1644; J1815; J1956; J2270; J2354; J2370; J2543; J2704; J3370; J3480; J3490; J7030; J7040; J7042; J7050; J7060; J7131; P9016; P9017; P9046